=== PATIENT | female | born 1970 | race African-American/Black ===

== ENCOUNTER 2016-12-27 10:32 | Emergency (ER) | payer OTHER ==
--- NOTE | 2016-12-27 10:40 | PDOC ---
History of Present Illness - General History Source: Patient Exam Limitations: No Limitations - History of Present Illness Initial Comments: 12/27/16 12:59 The patient is a 46-year-old female, with a significant past medical history of asthma and HTN (on Lisinopril), who presents to the ED with elevated BP, nausea , vomiting, and headache that began 4 days ago. The pt reports that she ran out of Lisinopril and received a prescription for Clonidine when she was seen at a clinic. Pt took the Clonidine for a week and stopped on Thursday when her prescription for Lisinopril was refilled. The next day she noted that her BP was high. She was seen at [facility] and received a dose of Lisinopril and was discharged home and told to follow-up with her PCP. The pt was supposed to see her PCP this Thursday but due to a scheduling error she was unable to. She noted her BP to be high this morning at 191/10 so she called her Network Pricing Consultant her advised the patient come into the ED today. On exam, the pt is complaining of persistent BP, nausea, vomiting and headache. She is also complaining of dizziness when ambulating and states that she is starting to see spots. She denies any fever, chills, nausea, vomiting, diarrhea, or abdominal pain. She denies any shortness of breath. She reports experiencing some mild chest pain last night that has now resolved. Social Hx: She reports tobacco and marijuana use. She denies alcohol use. <Melinda Mendoza - Last Filed: 12/27/16 12:59> <Vianey Olivas - Last Filed: 12/27/16 17:05> - General Stated Complaint: HIGH BLOOD PRESSURE/NAUSEA Time Seen by Provider: 12/27/16 10:39 Past History <Melinda Mendoza - Last Filed: 12/27/16 12:59> <Vianey Olivas - Last Filed: 12/27/16 17:05> - Past Medical History Allergies/Adverse Reactions: Allergies Allergy/AdvReac Type Severity Reaction Status Date / Time No Known Allergies Allergy Verified 12/27/16 12:19 Home Medications: Ambulatory Orders Aspirin [ASA -] 81 mg PO DAILY 12/27/16 Lisinopril/Hydrochlorothiazide [Lisinopril-Hctz 20-25 mg Tab] 1 each PO DAILY Montelukast Na [Singulair -] 10 mg PO HS 12/27/16 Review of Systems - Review of Systems Able to Perform ROS?: Yes Comments:: 12/27/16 13:01 Constitutional - Pt denies Fever, Chills, weakness, HEENT: (+)blurred vision. sore throat Respiratory: Denies cough, sob, hemoptysis Cardiac: denies chest pain, palpitations, light headedness, leg swelling Abd/GI: (+)vomiting, nausea. denies abd pain, blood per rectum, melena, diarrhea : denies dysuria, frequency, discharge Musculskelatal - denies back pain, joint swelling skin - denies bruising, erythema, rash neurological: (+)Headache, dizziness. denies numbness, focal weakness, tingling , ataxia, weakness hematologic: denies anemia, easy bruising, easy bleeding <Melinda Mendoza - Last Filed: 12/27/16 12:59> *Physical Exam - Vital Signs Last Vital Signs Temp Pulse Resp BP Pulse Ox 97.7 F 76 19 195/93 100 12/27/16 10:46 12/27/16 12:07 12/27/16 12:07 12/27/16 12:07 12/27/16 12:07 - Physical Exam Comments: 12/27/16 13:02 GENERAL: The patient is awake, alert, and fully oriented, Nontoxic - in no acute distress. HEAD: Normocephalic, atraumatic. EYES: extraocular movements intact, sclera anicteric, conjunctiva clear. ENT: (+)Moist mucous membranes. Normal voice. NECK: Normal range of motion, supple without lymphadenopathy, JVD, or masses. LUNGS: Breath sounds equal, clear to auscultation bilaterally. No wheezes, no crackles, no rales. HEART: Regular rate and rhythm, normal S1 and S2 without murmur, rub or gallop. ABDOMEN: Soft, nontender, normoactive bowel sounds. No guarding, no rebound. No masses. EXTREMITIES: Normal range of motion, no edema. No clubbing or cyanosis. No cords , erythema, or tenderness. NEUROLOGICAL: Fully Oriented, Alert, Normal Mood/Affect, Motor Strength 5/5. No facial assymetry, Normal speech SKIN: Warm, Dry, normal turgor, no rashes or lesions noted. <RejiMelinda - Last Filed: 12/27/16 12:59> ED Treatment Course - LABORATORY CBC & Chemistry Diagram: 12/27/16 11:50 12/27/16 11:50 - ADDITIONAL ORDERS Additional order review: Laboratory Results 12/27/16 12/27/16 12/27/16 11:50 11:50 10:57 Sodium 132 L Potassium 3.7 Chloride 96 L Carbon Dioxide 27 Anion Gap 9 BUN 10 Creatinine 0.9 Creat Clearance w eGFR > 60 Random Glucose 88 Calcium 9.2 Total Bilirubin 0.4 AST 12 L ALT 53 Alkaline Phosphatase 83 Creatine Kinase 178 Creatine Kinase Index 0.5 CK-MB (CK-2) < 1.000 Troponin I < 0.02 Total Protein 10.0 H Albumin 3.6 Urine Color Ltyellow Urine Appearance Slcloudy Urine pH 7.0 Ur Specific [place] 1.009 Urine Protein Negative Urine Glucose (UA) Negative Urine Ketones Negative Urine Blood 2+ H Urine Nitrite Negative Urine Bilirubin Negative Urine Urobilinogen Negative Urine WBC (Auto) 3 Urine RBC (Auto) < 1 Ur Epithelial Cells Few 12/27/16 11:50 RBC 4.32 MCV 87.3 MCHC 32.4 RDW 15.1 MPV 7.2 L Neutrophils % 67.0 Lymphocytes % 27.3 Monocytes % 4.7 Eosinophils % 0.4 Basophils % 0.6 - Medications Given in the ED: ED Medications Discontinued Medications Generic Name Dose Route Start Last Admin Trade Name Willianq PRN Reason Stop Dose Admin Clonidine 0.3 mg 12/27/16 12:33 12/27/16 12:55 Catapres - PO 12/27/16 12:34 0.3 mg ONCE ONE Administration Labetalol HCl 20 mg 12/27/16 10:58 12/27/16 12:02 Normodyne Injection - IVPUSH 12/27/16 10:59 20 mg ONCE ONE Administration Metoclopramide HCl 10 mg 12/27/16 12:24 12/27/16 12:51 Reglan Injection - IVPUSH 12/27/16 12:25 Not Given ONCE ONE Ondansetron HCl 4 mg 12/27/16 10:59 12/27/16 12:25 Zofran Injection IVPUSH 12/27/16 11:00 4 mg ONCE ONE Administration <Melinda Mendoza - Last Filed: 12/27/16 12:59> - LABORATORY CBC & Chemistry Diagram: 12/27/16 11:50 12/27/16 11:50 <Vianey Olivas - Last Filed: 12/27/16 17:05> Medical Decision Making - Medical Decision Making 12/27/16 10:40 I, Dr. Vianey Olivas, attest that the scribes documentation that appears above has been prepared under my direction and personally reviewed by me. I confirmed that the note above accurately reflects all work, treatment, procedures, and medical decision-making performed by me 12/27/16 16:47 Pt's b/p has decreased significantly 145/78 after clonidine .3mg, ct of head no acute cranial pathology. Ct was done as pt was still c/o headache even after blood pressure had decreased. Pt was given toradol and reglan which is what finally helped the headache. Pt requesting to go home,will dc home, with out pt f/u with pcp for better b/p control. 12/27/16 17:04 Pt's b/p at present is 130/75 <Vianey Olivas - Last Filed: 12/27/16 17:05> *DC/Admit/Observation/Transfer - Attestations Scribe Attestion: 12/27/16 13:04 Documentation prepared by Melinda Mendoza, acting as diagnostic medical sonographer for Vianey Olivas MD. <Melinda Mendoza - Last Filed: 12/27/16 12:59> - Discharge Dispostion Admit: No <Vianey Olivas - Last Filed: 12/27/16 17:05> Diagnosis at time of Disposition: Hypertension - Discharge Dispostion Disposition: HOME Condition at time of disposition: Stable - Patient Instructions Printed Discharge Instructions: DI for High Blood Pressure Additional Instructions: return to ED for headache associated with nausea and vomiting,blurred vision or as needed otherwise f/u with PCP. Pt needs to restart her clonidine .3mg now and f/u with her pcp to have clonidine slowly tapered off and an additional b/p agent added as needed.
[2016-12-27 10:52] VITALS: BMI 62.4
[2016-12-27] MEDS ORDERED: LABETALOL HCL 5 MG/1 ML (100MG/20 ML VIAL) IVPUSH ONE (10:58)
[2016-12-27] MEDS ORDERED: ONDANSETRON 4 MG/2 ML VIAL IVPUSH ONE (10:59)
[2016-12-27 11:29] LABS: URINE APPEARANCE SLCLOUDY; URINE BILIRUBIN NEGATIVE (NEGATIVE); URINE BLOOD 2+ (NEGATIVE); URINE COLOR LTYELLOW; URINE GLUCOSE (UA) NEGATIVE (NEGATIVE); URINE KETONE NEGATIVE (NEGATIVE); URINE NITRITE NEGATIVE (NEGATIVE); URINE PROTEIN NEGATIVE (NEGATIVE); URINE UROBILINOGEN NEGATIVE mg/dL (0.2-1.0)
[2016-12-27 11:57] LABS: BASO % 0.6 % (0-2.0); EOS % 0.4 % (0-4.5); MCH 28.3 pg (25.7-33.7); MCHC 32.4 g/dl (32.0-36.0); MEAN CELL VOLUME 87.3 fl (80-96); MEAN PLT VOLUME 7.2 fl (7.5-11.1); PLATELET COUNT 265 K/MM3 (134-434); RDW 15.1 % (11.6-15.6); WHITE BLOOD COUNT 5.4 K/mm3 (4.0-10.0)
[2016-12-27 12:06] LABS: URINE RBC < 1; URINE WBC 3
[2016-12-27 12:11] LABS: CALCIUM 9.2 mg/dL (8.5-10.1)
[2016-12-27 12:17] LABS: ALBUMIN 3.6 g/dl (3.4-5.0); ALK PHOS 83 U/L (45-117); ANION GAP 9 (8-16); BILIRUBIN,TOTAL 0.4 mg/dL (0.2-1.0); CO2 27 mmol/L (21-32); CREATININE 0.9 mg/dL (0.55-1.02); GLUCOSE,RANDOM 88 mg/dL (74-106); SGOT/AST 12 U/L (15-37); SGPT/ALT 53 U/L (12-78)
[2016-12-27 12:19] LABS: TROPONIN I < 0.02 ng/ml (0.00-0.05)
[2016-12-27 12:21] LABS: CPK 178 IU/L (26-192)
[2016-12-27] MEDS ORDERED: cloNIDine HCL 0.1 MG TABLET PO ONE (12:33)
[2016-12-27] MEDS: METOCLOPRAMIDE HCL INJECTION 10 MG/2 ML VIAL IVPUSH ONE ×2 (12:51→15:42)
[2016-12-27] MEDS ORDERED: cloNIDine HCL 0.1 MG TABLET ONE (12:52)
[2016-12-27] MEDS ORDERED: KETOROLAC TROMETHAMINE 30 MG/1 ML VIAL IVPUSH ONE (15:12)
[2016-12-27] MEDS ORDERED: METOCLOPRAMIDE HCL INJECTION 10 MG/2 ML VIAL ONE (15:31)
[2016-12-27] MEDS ORDERED: KETOROLAC TROMETHAMINE 60 MG/2 ML VIAL ONE (15:32)
[2016-12-27] MEDS ORDERED: ACETAMINOPHEN/CAFFEINE/BUTALBITAL 1 TAB PO ONE (16:16)
[2016-12-27 16:59] LABS: URINE LEUK ESTERASE Negative (NEGATIVE)
[2016-12-27 17:08] VITALS: BP 143/95; PULSE 78; TEMP 98.2
[2016-12-27] MEDS ORDERED: ACETAMINOPHEN/CAFFEINE/BUTALBITAL 1 TAB ONE (17:10)
--- NOTE | 2016-12-29 09:54 | EKG ---
Test Reason : Blood Pressure : / mmHG Vent. Rate : 056 BPM Atrial Rate : 056 BPM P-R Int : 184 ms QRS Dur : 102 ms QT Int : 460 ms P-R-T Axes : 039 -18 043 degrees QTc Int : 443 ms SINUS BRADYCARDIA OTHERWISE NORMAL ECG NO PREVIOUS ECGS AVAILABLE Confirmed by BRADLEY KAPLAN, AB ([id number]) on 12/29/2016 9:53:38 AM Referred By: Confirmed By:AB HUERTA MD
== END 2016-12-27 17:20 | disposition home or self-care (01) ==
LOC: JER 10:32
PROC: 3E0333Z Introduction of Anti-inflammatory into Peripheral Vein, Percutaneous Approach (ICD-10-PCS; principal; 2016-12-27)
PROC: 3E033GC Introduction of Other Therapeutic Substance into Peripheral Vein, Percutaneous Approach (ICD-10-PCS; 2016-12-27)
PROC: 3E033GC Introduction of Other Therapeutic Substance into Peripheral Vein, Percutaneous Approach (ICD-10-PCS; 2016-12-27)
PROC: 3E033NZ Introduction of Analgesics, Hypnotics, Sedatives into Peripheral Vein, Percutaneous Approach (ICD-10-PCS; 2016-12-27)
DX: I10 Essential (primary) hypertension (principal); Z91.14 Patient's other noncompliance with medication regimen
CPT/HCPCS: 36415; 70450-TC; 80053; 81003; 81015; 82550; 82553; 84484; 84703; 85025; 93005; 93010; 96374; 96375; 99284-25

== ENCOUNTER 2018-06-28 04:17 | Emergency (ER) | payer OTHER ==
[2018-06-28 04:45] VITALS: BMI 34.9
[2018-06-28] MEDS ORDERED: ONDANSETRON 4 MG/2 ML VIAL IVPUSH ONE (05:06)
--- NOTE | 2018-06-28 05:09 | PDOC ---
History of Present Illness - General Chief Complaint: Asthma Stated Complaint: ASTHMA,COUGH,NOT EATING Time Seen by Provider: 06/28/18 04:40 - History of Present Illness Initial Comments: 06/28/18 05:06 Ms. Vasquez is a 47 yo female w/ pmh of asthma, frequent pnuemonia, HTN, and DM who presents for evaluation of 3 day history of cough with nausea and "spitting up" after eating. Patient denies any abdominal pain however reports she hasn't been eating much over this time period. Also reports she has continued to smoke cigarettes and marijuana over this time period as well. Patient also endorses using cocaine nasally around the time that these symptoms started. The patient denies chest pain, headache and dizziness. Denies fever, chills, nausea, vomit, diarrhea and constipation. Denies dysuria, frequency, urgency and hematuria. Past History - Past Medical History Allergies/Adverse Reactions: Allergies Allergy/AdvReac Type Severity Reaction Status Date / Time No Known Allergies Allergy Verified 06/28/18 04:33 Home Medications: Ambulatory Orders Aspirin [ASA -] 81 mg PO DAILY 12/27/16 Lisinopril/Hydrochlorothiazide [Lisinopril-Hctz 20-25 mg Tab] 1 each PO DAILY Montelukast Na [Singulair -] 10 mg PO HS 12/27/16 Prednisone [Deltasone] 40 mg PO DAILY #8 tablet 06/28/18 Asthma: Yes COPD: Yes HTN: Yes Psychiatric Problems: Yes (anxiety, Bipolar) - Suicide/Smoking/Psychosocial Hx Smoking History: Current some day smoker Have you smoked in the past 12 months: Yes Number of Cigarettes Smoked Daily: 5 Information on smoking cessation initiated: No Hx Alcohol Use: No Drug/Substance Use Hx: No Substance Use Type: None Review of Systems - Review of Systems Comments:: 06/28/18 05:06 GENERAL/CONSTITUTIONAL: No fever or chills. No weakness. HEAD, EYES, EARS, NOSE AND THROAT: No change in vision. No ear pain or discharge. No sore throat. CARDIOVASCULAR: No chest pain RESPIRATORY: +Cough over previous 3 days. No wheezing or hemoptysis. GASTROINTESTINAL: +Nausea as described. No diarrhea or constipation. GENITOURINARY: No dysuria, frequency, or change in urination. MUSCULOSKELETAL: No joint or muscle swelling or pain. No neck or back pain. SKIN: No rash NEUROLOGIC: No headache, vertigo, loss of consciousness, or change in strength/ sensation. ENDOCRINE: No increased thirst. No abnormal weight change HEMATOLOGIC/LYMPHATIC: No anemia, easy bleeding, or history of blood clots. ALLERGIC/IMMUNOLOGIC: No hives or skin allergy. *Physical Exam - Vital Signs Last Vital Signs Temp Pulse Resp BP Pulse Ox 97.6 F 108 H 18 95/70 98 06/28/18 04:33 06/28/18 04:33 06/28/18 04:33 06/28/18 04:33 06/28/18 04:33 - Physical Exam Comments: 06/28/18 05:06 GENERAL: Awake, alert, and fully oriented, in no acute distress HEAD: No signs of trauma, normocephalic, atraumatic EYES: PERRLA, EOMI, sclera anicteric, conjunctiva clear ENT: Auricles normal inspection, hearing grossly normal, nares patent, oropharynx clear without exudates. Moist mucosa NECK: Normal ROM, supple, no lymphadenopathy, JVD, or masses LUNGS: +Poor air movement appreciated limiting exam. No distress, speaks full sentences HEART: Regular rate and rhythm, normal S1 and S2, no murmurs, rubs or gallops, peripheral pulses normal and equal bilaterally. ABDOMEN: Soft, nontender, normoactive bowel sounds. No guarding, no rebound. No masses EXTREMITIES: Normal inspection, Normal range of motion, no edema. No clubbing or cyanosis. NEUROLOGICAL: Cranial nerves II through XII grossly intact. Normal speech, normal gait, no focal sensorimotor deficits SKIN: Warm, Dry, normal turgor, no rashes or lesions noted. ED Treatment Course - LABORATORY CBC & Chemistry Diagram: 06/28/18 05:36 06/28/18 05:36 Medical Decision Making - Medical Decision Making 06/28/18 07:31 Ms. Vasquez is a 47 yo female w/ pmh as described who presents for evaluation of symptoms concerning for asthma exacerbation vs. viral illness vs. pneumonia. Patient evaluated with labs as below as well as CXR. Patient given duonebs for symptomatic relief as well as zofran. Patient significantly improved following this treatment. CXR negative. No concern for acute process at this time. Patient advised to stop smoking and using drugs. Discharging to home with steroid taper. Laboratory Results - last 24 hr 06/28/18 06/28/18 06/28/18 05:36 05:36 05:36 WBC 3.8 L RBC 3.45 L Hgb 9.7 L Hct 29.9 L D MCV 86.7 MCH 28.0 MCHC 32.3 RDW 19.0 H Plt Count 191 D MPV 7.9 Absolute Neuts (auto) 3.0 Neutrophils % 79.1 Lymphocytes % 14.9 D Monocytes % 5.4 Eosinophils % 0.0 D Basophils % 0.6 Nucleated RBC % 0 Sodium 135 L Potassium 4.1 Chloride 102 Carbon Dioxide 24 Anion Gap 9 BUN 11 Creatinine 1.0 Est GFR (CKD-EPI)AfAm 78.79 Est GFR (CKD-EPI)NonAf 67.98 POC Glucometer Random Glucose 88 Calcium 8.2 L Total Bilirubin 0.3 AST 16 ALT 15 Alkaline Phosphatase 47 Total Protein 8.7 H Albumin 3.3 L Serum , Qual Negative 06/28/18 05:55 WBC RBC Hgb Hct MCV MCH MCHC RDW Plt Count MPV Absolute Neuts (auto) Neutrophils % Lymphocytes % Monocytes % Eosinophils % Basophils % Nucleated RBC % Sodium Potassium Chloride Carbon Dioxide Anion Gap BUN Creatinine Est GFR (CKD-EPI)AfAm Est GFR (CKD-EPI)NonAf POC Glucometer 98 Random Glucose Calcium Total Bilirubin AST ALT Alkaline Phosphatase Total Protein Albumin Serum , Qual 06/28/18 07:34 *DC/Admit/Observation/Transfer Diagnosis at time of Disposition: Cough - Discharge Dispostion Disposition: HOME - Referrals Referrals: Ramu Lee [Primary Care Provider] - - Patient Instructions Printed Discharge Instructions: Asthma -- Adult Additional Instructions: You were evaluated today in the ER for your symptoms. Your symptoms improved following breathing treatments. No concerning findings were found on exam and we believe you are safe for discharge home. We have also sent a proscription to your pharmacy. Take all medications as proscribed. Return to ER if any fever, chills, worsening of symptoms, or other concerning changes. - Post Discharge Activity
[2018-06-28] MEDS ORDERED: ALBUTEROL SO4 2.5/IPRATROPIUM 0.5 INH SOL 3 ML VIAL.NEB. NEB ONE (05:25)
[2018-06-28] MEDS: ALBUTEROL SO4 2.5/IPRATROPIUM 0.5 INH SOL 3 ML VIAL.NEB. NEB SCH ×2 (05:44→06:23)
[2018-06-28] MEDS ORDERED: ONDANSETRON 4 MG/2 ML VIAL ONE (05:46)
[2018-06-28 06:00] LABS: BASO % 0.6 % (0-2.0); HEMATOCRIT 29.9 % (32.4-45.2); HEMOGLOBIN 9.7 GM/dL (10.7-15.3); LYMPH % 14.9 % (8-40); MCHC 32.3 g/dl (32.0-36.0); MEAN CELL VOLUME 86.7 fl (80-96); MEAN PLT VOLUME 7.9 fl (7.5-11.1); MONO % 5.4 % (3.8-10.2); NEUT % 79.1 % (42.8-82.8); PLATELET COUNT 191 K/MM3 (134-434); RBC 3.45 M/mm3 (3.60-5.2); WHITE BLOOD COUNT 3.8 K/mm3 (4.0-10.0)
[2018-06-28] MEDS ORDERED: PANTOPRAZOLE SODIUM 40 MG/100 ML BAG IVPB ONE (06:06)
[2018-06-28] MEDS ORDERED: PHYTONADIONE 5 MG TABLET ONE (06:06)
[2018-06-28 06:28] LABS: ALBUMIN 3.3 g/dl (3.4-5.0); BILIRUBIN,TOTAL 0.3 mg/dL (0.2-1); CALCIUM 8.2 mg/dL (8.5-10.1); POTASSIUM 4.1 mmol/L (3.5-5.1); TOT PROT 8.7 g/dl (6.4-8.2)
[2018-06-28] MEDS ORDERED: SODIUM CHLORIDE 0.9% 1000 ML INFUS.BAG IV ONE (07:23)
[2018-06-28] MEDS ORDERED: predniSONE 20 MG TABLET (UD) PO ONE (07:33)
--- NOTE | 2018-06-28 07:42 | PDOC ---
Attending Attestation - Resident Resident Name: Kory Moseleyorn - ED Attending Attestation I have performed the following: I have examined & evaluated the patient, The case was reviewed & discussed with the resident, I agree w/resident's findings & plan, Exceptions are as noted - HPI HPI: 06/28/18 07:35 47 yo F h/o DM asthma, cocain abuse here with c/o cough congesetion wheezing and difficulty breathing since used cocain 2 days ago. pt states does not use inhaler but has one at home. also is a current smoker. no f/c cough nonproductive. no rash. no leg swelling. no other complaint. denies other drug use. - Physicial Exam PE: 06/28/18 07:38 awake alert lungs with decreased airfow bilaterally heart reg tacycardia. tactile skin warm to touch dry. abd soft nt nd ext wwp no edema. no calf tenderness. nuero alert oreinted 3. - Medical Decision Making 06/28/18 07:39 differential: bronchspasm from cocaine, asthma exacerbation/ copd, pneumonia, plan cxr labs bronchodilator steroids. cxr negative for pneumonia. feels improved after nebs.
[2018-06-28] MEDS ORDERED: LACTATED RINGERS SOLUTION 1000 ML INFUS.BAG IV ONE (08:23)
[2018-06-28] MEDS ORDERED: ACETAMINOPHEN 325 MG TABLET (FP) PO ONE (08:23)
--- NOTE | 2018-06-28 08:26 | PDOC ---
*Physical Exam - Vital Signs Last Vital Signs Temp Pulse Resp BP Pulse Ox 102.5 F H 104 H 18 140/76 94 L 06/28/18 08:19 06/28/18 08:19 06/28/18 08:19 06/28/18 08:19 06/28/18 08:19 Vital Signs - Vital Signs #1 Pulse Rate: 90 O2 Sat by Pulse Oximetry (%): 98 Oxygen Delivery Method: Room Air ED Treatment Course - LABORATORY CBC & Chemistry Diagram: 06/28/18 05:36 06/28/18 05:36 - ADDITIONAL ORDERS Additional order review: Laboratory Results 06/28/18 06/28/18 06/28/18 05:55 05:36 05:36 Sodium 135 L Potassium 4.1 Chloride 102 Carbon Dioxide 24 Anion Gap 9 BUN 11 Creatinine 1.0 Est GFR (CKD-EPI)AfAm 78.79 Est GFR (CKD-EPI)NonAf 67.98 POC Glucometer 98 Random Glucose 88 Calcium 8.2 L Total Bilirubin 0.3 AST 16 ALT 15 Alkaline Phosphatase 47 Total Protein 8.7 H Albumin 3.3 L Serum , Qual Negative 06/28/18 06/28/18 05:55 05:36 RBC 3.45 L MCV 86.7 MCHC 32.3 RDW 19.0 H MPV 7.9 Neutrophils % 79.1 Lymphocytes % 14.9 D Monocytes % 5.4 Eosinophils % 0.0 D Basophils % 0.6 POC Glucometer 98 - Medications Given in the ED: ED Medications Discontinued Medications Generic Name Dose Route Start Last Admin Trade Name Freq PRN Reason Stop Dose Admin Albuterol/Ipratropium 1 amp 06/28/18 05:15 06/28/18 06:23 Duoneb - NEB 06/28/18 06:01 1 amp Q15M KYM Administration Ondansetron HCl 4 mg 06/28/18 05:06 06/28/18 05:57 Zofran Injection IVPUSH 06/28/18 05:07 4 mg ONCE ONE Administration Medical Decision Making - Medical Decision Making 06/28/18 07:00 Received sign out from resident Dr. Moseley. *DC/Admit/Observation/Transfer Diagnosis at time of Disposition: Cough Nausea & vomiting Qualifiers: Vomiting type: unspecified Vomiting Intractability: non-intractable Qualified Code(s): R11.2 - Nausea with vomiting, unspecified Fever Qualifiers: Fever type: unspecified Qualified Code(s): R50.9 - Fever, unspecified - Discharge Dispostion Disposition: HOME - Prescriptions Prescriptions: Prednisone [Deltasone] 40 mg PO DAILY #8 tablet - Referrals Referrals: Ramu Lee [Primary Care Provider] - - Patient Instructions Printed Discharge Instructions: Asthma -- Adult, DI for Viral Gastroenteritis - - Adult Additional Instructions: You were evaluated today in the ER for your symptoms. Your symptoms improved following breathing treatments. No concerning findings were found on exam and we believe you are safe for discharge home. We have also sent a proscription to your pharmacy. Take all medications as proscribed. Return to ER if any fever, chills, worsening of symptoms, or other concerning changes. Print Language: DANISH - Post Discharge Activity
[2018-06-28] MEDS ORDERED: ACETAMINOPHEN 325 MG TABLET (FP) ONE (09:08)
[2018-06-28] MEDS ORDERED: predniSONE 20 MG TABLET (UD) ONE (09:08)
[2018-06-28 11:54] VITALS: BP 126/77; TEMP 99.3
[2018-06-28 12:21] VITALS: PULSE 90
== END 2018-06-28 12:31 | disposition home or self-care (01) ==
LOC: JER 04:17
PROC: 3E033GC Introduction of Other Therapeutic Substance into Peripheral Vein, Percutaneous Approach (ICD-10-PCS; principal; 2018-06-28)
PROC: 3E0F7GC Introduction of Other Therapeutic Substance into Respiratory Tract, Via Natural or Artificial Opening (ICD-10-PCS; 2018-06-28)
DX: J45.909 Unspecified asthma, uncomplicated (principal); R05 Cough; I10 Essential (primary) hypertension; E11.9 Type 2 diabetes mellitus without complications; Z87.01 Personal history of pneumonia (recurrent); F17.210 Nicotine dependence, cigarettes, uncomplicated; F12.10 Cannabis abuse, uncomplicated
CPT/HCPCS: 36415; 71045-TC-FY; 80053; 82962; 84703; 85025; 94640; 96374; 99281-25

== ENCOUNTER 2019-03-15 16:03 | Emergency (ER) | payer OTHER ==
--- NOTE | 2019-03-15 18:41 | PDOC ---
History of Present Illness - General Chief Complaint: CVA/TIA Stated Complaint: NUMBNESS Time Seen by Provider: 03/15/19 18:16 - History of Present Illness Initial Comments: Ms. Vasquez is a 48 y/o female with PMH significant for asthma, HTN, DM, COPD, presenting today with periorbital swelling. Reports that this started this morning when she woke up. Reports mild light sensitivity and that she has been seeing her eye doctor for new glasses a few weeks ago. No fever/chills. No chest pain/shortness of breath. No abdominal pain. No cough. Reports mild bifrontal headache. No pain or TTP. No loss of sensation. Never had these symptoms before. She has a mild facial twitch which she states is chronic. NIH Stroke Scale - Last Known Well Date/Time & Onset Date Last Known Well: 03/15/19 Time Last Known Well: 00:00 - Initial Evaluation Level of consciousness: Alert Ask patient the month and their age: Answers both correctly Ask patient to open & close eyes; make fist and let go: Obeys both correctly Best gaze (horizontal eye movement): Normal Visual field testing: No visual field loss Facial paresis (Show teeth/raise eyebrows/close eyes tight): Normal symmetrical movement Motor Function: Left Arm: Normal Motor Function: Right Arm: Normal (extends arm 90 (or 45) degrees for 10 seconds without drift Motor Function: Left Leg: Normal (extends leg 30 degrees for 5 seconds without drift) Motor Function: Right Leg: Normal (extends leg 30 degrees for 5 seconds without drift) Limb Ataxia: No ataxia Sensory(Use pinprick test arms,legs,trunk,face/side to side): Normal Best language (Describe picture, name items, read sentences): No Aphasia Dysarthria (read several words): Normal articulation Extinction and Inattention: No abnormality - Total Score NIH Stroke Scale Score: 0 Past History - Past Medical History Allergies/Adverse Reactions: Allergies Allergy/AdvReac Type Severity Reaction Status Date / Time No Known Allergies Allergy Verified 03/15/19 20:05 Home Medications: Ambulatory Orders Albuterol 0.083% Nebulizer Kat [Ventolin 0.083% Nebulizer Soln -] 1 neb NEB Q6H 03/15/19 Amlodipine Besylate [Norvasc -] 10 mg PO DAILY 03/15/19 Aspirin 81 mg PO DAILY 03/15/19 Budesonide/Formeterol Fumarate [SYMBICORT 160/4.5mcg -] 2 inh PO PRN PRN Divalproex *ER* [Depakote *ER* -] 500 mg PO BID 03/15/19 Famotidine [Pepcid -] 40 mg PO DAILY 03/15/19 Gabapentin [Neurontin] 300 mg PO DAILY 03/15/19 Guaifenesin Dm [Robitussin Dm -] 10 ml PO Q6H 03/15/19 Lisinopril [Prinivil -] 40 mg PO DAILY 03/15/19 Metformin HCl [Glucophage] 500 mg PO BID 03/15/19 Montelukast Sodium [Singulair] 10 mg PO DAILY 03/15/19 Quetiapine Fumarate [Seroquel -] 100 mg PO DAILY 03/15/19 Semaglutide [Ozempic] 0.5 mg SQ WEEKLY 03/15/19 Tiotropium [place] [Spiriva Respimat] 2 puff IH PRN PRN 03/15/19 predniSONE [Deltasone] 10 mg PO DAILY 03/15/19 Asthma: Yes COPD: No HTN: Yes Psychiatric Problems: Yes (anxiety, Bipolar) - Psycho Social/Smoking Cessation Hx Smoking History: Current every day smoker Have you smoked in the past 12 months: Yes Number of Cigarettes Smoked Daily: 5 Hx Alcohol Use: No Drug/Substance Use Hx: No Substance Use Type: None Review of Systems - Review of Systems Comments:: GENERAL/CONSTITUTIONAL: No fever or chills. No weakness._ HEAD, EYES, EARS, NOSE AND THROAT: No change in vision. No change in hearing. No sore throat. Reports bilateral periorbital swelling left greater than right. CARDIOVASCULAR: No chest pain or shortness of breath_ RESPIRATORY: Denies cough, hemoptysis_ GASTROINTESTINAL: No nausea, vomiting, diarrhea or constipation._ GENITOURINARY: No dysuria, frequency, or change in urination._ MUSCULOSKELETAL: No joint or muscle swelling or pain. No neck or back pain._ SKIN: No rash_ NEUROLOGIC: No headache, vertigo, loss of consciousness, or change in strength/ sensation._ ENDOCRINE: No increased thirst. No abnormal weight change_ HEMATOLOGIC/LYMPHATIC: No anemia, easy bleeding, or history of blood clots._ ALLERGIC/IMMUNOLOGIC: No hives or skin allergy._ *Physical Exam - Physical Exam GENERAL: Awake, alert, and oriented to person/place/time, in no acute distress_ HEAD: No signs of trauma, normoc ephalic, atraumatic _ EYES: PERRLA, EOMI, sclera anicteric, conjunctiva clear. Mild periorbital swelling left greater than right with no erythema, redness, or tenderness. ENT: Hearing grossly normal, nares patent, oropharynx clear without exudates. No uvular deviation. Moist mucosa. No facial asymmetry. NECK: Normal ROM, supple, no lymphadenopathy, JVD, or masses_ LUNGS: No distress, speaks in full sentences, clear to auscultation bilaterally _ HEART: Regular rate and rhythm, normal S1 and S2, no murmurs appreciated, peripheral pulses normal and equal bilaterally._ ABDOMEN: Soft, nontender, normoactive bowel sounds. No guarding, no rebound. No masses_ EXTREMITIES: Normal inspection, Normal range of motion, no edema. No clubbing or cyanosis_ NEUROLOGICAL: Cranial nerves II through XII grossly intact. Normal speech, normal gait, no focal sensorimotor deficits _ SKIN: Warm, Dry, normal turgor, no rashes or lesions noted_ Medical Decision Making - Medical Decision Making 03/15/19 18:54 [id number] presenting with bilateral periorbital edema left greater than right. Recently got a cat 2 months ago. -CT head 03/15/19 19:40 Pt reassessed. Chvostek's sign negative. Trousseau's sign negative. 03/15/19 20:42 CT head negative. Plan to d/c home with PCP f/u prn. all questions answered. return precautions given. pt verbalized understanding and agreement with plan. Discharge - Discharge Information Problems reviewed: Yes Clinical Impression/Diagnosis: Facial twitching Allergic reaction Qualifiers: Encounter type: initial encounter Qualified Code(s): T78.40XA - Allergy, unspecified, initial encounter Condition: Stable Disposition: HOME - Admission No - Follow up/Referral Referrals: Ramu Lee [Primary Care Provider] - - Patient Discharge Instructions Additional Instructions: Please continue to hydrate and rest. Please make a follow up appointment with your primary care doctor if your symptoms do not improve. If you experience any new, worsening, or concerning symptoms, including difficulty breathing, change in vision, eye pain, or any other concerns, please return to the emergency department. - Post Discharge Activity
--- NOTE | 2019-03-15 19:29 | PDOC ---
Attending Attestation - Resident Resident Name: Kenroy Tolliver - ED Attending Attestation I have performed the following: I have examined & evaluated the patient, The case was reviewed & discussed with the resident, I agree w/resident's findings & plan - HPI HPI: 03/15/19 20:33 see resident hpi - Physicial Exam PE: 03/15/19 20:34 agree with resident exam - Medical Decision Making 03/15/19 20:34 48-year-old female with swelling around the right eyelid after laying near her cat She was seen by an outside physician who was concerned about her history of intermittent facial twitching On exam patient is neuro intact There is no clinical indication of calcium level abnormality In-depth neuro exam within normal limits CT scan of the brain shows no acute abnormality Patient has been ambulating well, in regards to facial twitching she states it has been there for many months and is intermittent She will be discharged with outpatient neurology follow-up
[2019-03-15 20:04] VITALS: BMI 34.1
[2019-03-15] MEDS ORDERED: diphenhydrAMINE HCL 25 MG CAPSULE (FP) PO ONE ×2 (20:40→20:41)
[2019-03-15 20:50] VITALS: BP 139/86; PULSE 81; TEMP 97.3
== END 2019-03-15 20:55 | disposition home or self-care (01) ==
LOC: JER 16:03
DX: T78.40XA Allergy, unspecified, initial encounter (principal); R25.3 Fasciculation; J45.909 Unspecified asthma, uncomplicated; J44.9 Chronic obstructive pulmonary disease, unspecified; I10 Essential (primary) hypertension; E11.9 Type 2 diabetes mellitus without complications; Z79.84 Long term (current) use of oral hypoglycemic drugs; F41.9 Anxiety disorder, unspecified; F31.9 Bipolar disorder, unspecified; F17.210 Nicotine dependence, cigarettes, uncomplicated
CPT/HCPCS: 70450-TC; 99282-25